=== PATIENT | male | born 1995 | race African-American/Black ===

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

== ENCOUNTER 2018-04-06 11:31 | Day surgery (SDC) | payer OTHER ==
--- NOTE | 2018-04-03 14:56 | HP ---
PREOPERATIVE HISTORY AND PHYSICAL: DATE OF ADMISSION/SURGERY: 04/06/18 [facility] DATE OF OFFICE VISIT: 03/31/18 ATTENDING SURGEON: Dr. Trent Kemp.* (DICTATED BY HOMAR CERNA) PROCEDURE: Left knee arthroscopy, partial meniscectomy, removal of hardware from tibia. CHIEF COMPLAINT: Left knee. HISTORY OF PRESENT ILLNESS: Ethan is a 22-year-old male, who presents to the clinic for left knee pain due to meniscus tear and painful hardware. He had a prior ACL and lateral meniscus repair with Dr. Kemp. He states he has had pain that comes and goes for years. He states that he feels locked in the morning. He has intermittent clicking. He states that the pain has worsened in his leg. He describes it as a lateral pain. He denies any instability or swelling. He denies numbness, tingling, fever, chills, chest pain, shortness of breath, and is doing well otherwise. He has failed conservative measures and therefore agreed to undergo a left knee arthroscopy, partial meniscectomy, and removal of hardware from tibia on 04/06/18. PAST MEDICAL HISTORY: Denies current problems. PAST SURGICAL HISTORY: Left clavicle and left knee ACL and lateral meniscus. The patient denies prior complications with anesthesia. MEDICATIONS: No active medications. ALLERGIES: No known drug allergies. FAMILY HISTORY: Denies pertinent family history. SOCIAL HISTORY: He denies smoking. He reports occasional alcohol consumption. He denies illegal drug use. REVIEW OF SYSTEMS: A 14-point review of systems was reviewed with the patient. Positive for current complaint, otherwise negative. Denies fever, chills, chest pain, shortness of breath, history of DVT or PE, history of bleeding disorder. PHYSICAL EXAMINATION GENERAL: A 22-year-old well-developed, well-nourished male, in no acute distress. Alert and oriented x3. Appropriate mood and affect. Appropriate balance and coordination of the upper extremities. VITAL SIGNS: Height 67.5, weight 179, blood pressure 118/66, respiratory rate 18, BMI 27.6. HEENT: Normocephalic, atraumatic. PERRLA. Throat clear. NECK: Supple. PULMONARY: Lungs are clear to auscultation bilaterally. No wheezing, rhonchi, or rales. CARDIO: Regular rate and rhythm. S1, S2. No murmurs, gallops, or rubs. No edema. ABDOMEN: Positive bowel sounds. Soft, nontender. NEURO: Alert and oriented x3. Cranial nerves grossly intact. MUSCULOSKELETAL: Left lower extremity: Skin is intact. Mild tenderness to palpation over the lateral joint line. Nontender over the medial joint line. He has tenderness to palpation over his tibial hardware. Range of motion is 0 to 130. Stable to varus and valgus stress. Stable Taty. Negative posterior drawer. Positive Bentley and mildly positive Roxanna. +2 DP pulse. Sensation intact to light touch distally. DIAGNOSTIC STUDIES: Multi-view x-rays of the left knee revealed presence of hardware from prior ACL surgery. No evidence of acute fracture or dislocation. ASSESSMENT AND PLAN: Ethan is a 22-year-old male, who presents to the clinic for followup of his left knee. He had a prior ACL reconstruction with lateral meniscus repair. He continues to have pain laterally and pain from his tibial hardware; therefore, he has agreed to undergo a left knee arthroscopy, partial meniscectomy, and removal of hardware from tibia on 04/06/[address] Kemp. Percocet will be used for postop pain management. He will follow up 10 to 14 days postop for followup and suture removal. HOMAR CERNA [id number]/[facility] #: [id number] [facility] HOSPITALPerry
[~2018-04-06 11:31] MED LIST: Buffered Lidocaine 1% SYRIN* 1 ML/SYRINGE INTRADERM ONE; Dexamethasone TAB* 4 MG PO ONE; Famotidine IV* 10 MG/ML 2 ML (20 mg) IV ONE; Lactated Ringers 1000 ML Bag* 1,000 ML IV SCH; Ondansetron INJ* 2 MG/ML VIAL ONE
[2018-04-06] MEDS ORDERED: Ondansetron ODT TAB* 4 MG ONE (11:46)
[2018-04-06] MEDS ORDERED: Famotidine IV* 10 MG/ML 2 ML (20 mg) ONE (11:46)
[2018-04-06] MEDS ORDERED: Dexamethasone TAB* 4 MG ONE (11:46)
[2018-04-06] MEDS ORDERED: ceFAZolin 2 GM PREMIX in ORs 2 GM/50 ML BAG IVPB ONE (11:47)
[2018-04-06] MEDS ORDERED: Lidocaine 1% MPF wEPI 200,000* 30 ML SDV ONE (13:10)
[2018-04-06] MEDS ORDERED: ROPIVACAINE 5 MG/ML 30 ML BTL (0.5%) ONE (13:11)
[2018-04-06] MEDS ORDERED: fentaNYL* 50 MCG/ML 5 ML VIAL (250 MCG VIAL) ONE (13:17)
[2018-04-06] MEDS ORDERED: Midazolam* 1 MG/ML 5 ML VIAL (5 MG) ONE (13:17)
[2018-04-06] MEDS ORDERED: Lidocaine 2% PF * 5 ML VIAL ONE (13:18)
[2018-04-06] MEDS ORDERED: Ketorolac INJ* 30 MG/ML 1 ML VIAL ONE (13:18)
[2018-04-06] MEDS ORDERED: Ondansetron INJ* 2 MG/ML VIAL ONE (13:18)
[2018-04-06] MEDS ORDERED: Propofol* 10 MG/ML 20 ML BTL ONE (13:18)
[2018-04-06] MEDS ORDERED: Glycopyrrolate IV* 0.2 MG/ML 1 ML VIAL ONE (13:40)
[2018-04-06] MEDS ORDERED: Atropine 1MG/ML INJ* 1 ML VIAL ONE (13:43)
[2018-04-06] MEDS ORDERED: Naloxone* 0.4 MG/ML 1 ML VIAL IV PRN (14:33)
[2018-04-06] MEDS ORDERED: oxyCODONE/Acetamin 5/325 MG* TAB PO PRN (14:33)
[2018-04-06] MEDS ORDERED: fentaNYL* 50 MCG/ML 2 ML VIAL (100 MCG VIAL) IV PRN (14:33)
[2018-04-06] MEDS ORDERED: DiMENhydriNATE IV* 50 MG/ML VIAL IV PUSH PRN (14:33)
[2018-04-06 15:20] VITALS: BP 121/68
--- NOTE | 2018-04-06 22:56 | OP ---
DATE OF OPERATION: 04/06/18 - [facility] DATE OF : [birth year] SURGEON: Trent Kemp MD. LOGISTICS ASSOCIATE: Anita , WILL student. ANESTHESIOLOGIST: Dr. Ospina. ANESTHESIA: General. PRE-OP DIAGNOSIS: Left possible lateral meniscus tear and previous ACL reconstruction with symptomatic hardware in the tibia. POST-OP DIAGNOSIS: Left possible lateral meniscus tear and previous ACL reconstruction with symptomatic hardware in the tibia. OPERATIVE PROCEDURE: 1. Left knee arthroscopy with a debridement of cyclops lesion. 2. Partial lateral meniscectomy. 3. Removal of hardware through a separate incision from the tibia. COMPLICATIONS: None. ESTIMATED BLOOD LOSS: Minimal. INDICATIONS: Ethan Hooper is a 22-year-old male who underwent a previous ACL reconstruction in fall 2014, which has been ACL reconstruction with BTB and an outside and lateral root meniscus repair. He has been able to successfully play football for some time. He states that the knee bothers him on occasion. He has noticed that he had some pain about the anterior aspect of the knee as well as along the washer post construct on the tibia. He had previous issues with the laterally based pain on occasion. We decided to proceed with a left knee arthroscopy with possible partial meniscectomy as well as removal of hardware. After extensive discussion of the risks and benefits including but not limited to bleeding; infection; damage to nerves, vessels, surrounding structures; wound nonhealing; persistent pain; need for further surgery; scarring; stiffness; incomplete relief of symptoms; risks of anesthesia; and risks of DVTs, elected to proceed. DESCRIPTION OF PROCEDURE: The patient was greeted in the preoperative area by the attending surgeon. Correct extremity was marked. Consent was confirmed. The patient was brought back to the operating suite, where he was placed in supine position on the operating table. He then underwent general anesthesia and LMA intubation, after which a nonsterile tourniquet was placed high on the proximal thigh. The lateral post was positioned. The leg was then prepped and draped in usual sterile fashion beginning with chlorhexidine soap, scrub, and alcohol wipe and a final prep with ChloraPrep. After appropriate surgical pause indicating site, side, procedure, and administration of antibiotics, the knee was intra-articularly injected with 0.1 % lidocaine with epi. The lateral portal was made with #11 blade sharply. There was abundant scar tissue about the anterior aspect of the knee. The abundant scar tissue was then released using a shaver. There was evidence of a cyclops lesion stemming from the ACL. This was debrided back using biters and aleisha with care not to destroy the graft. Graft was intact. The patellofemoral joint had minimal changes. The medial gutter was examined. There was no loose debris that was present. The medial compartment was examined. There was no evidence of tearing and there were grade 0 to 1 changes at the medial femoral condyle medial plateau. ACL was again found to be intact. There was abundant scar tissue. It impeded lateral viewing. Therefore, the Bovie and the shaver were used to debride this back to be able to visualize the lateral compartment. Once this was removed, the knee was placed in figure-of- four and the compartment was examined and there was a previous repair of the lateral meniscus that was a root repair. The wide edges had not healed; therefore, the shaver was used to debride this back. Once this was completed, the knee was then thoroughly lavaged and removed all fluids and the attention was directed to the open portion of the case. At this point, a previous incision was opened up using a #15 blade. Soft tissues were carefully exposed to expose the abundant sutures as well as the 4.5 mm screw. It was then removed in its entirety. The wound was then appropriately irrigated with sterile saline. The portals were closed with 3-0 nylon. The skin was closed in layers with 3-0 Monocryl and then 3-0 nylon in a running fashion. The knee was intra-articularly and locally injected with 0.2% ropivacaine. Sterile dressings were applied. Cryo/Cuff was applied. He was awoken from anesthesia and transferred to PACU in stable condition. POSTOPERATIVE PLAN: He will be weightbearing as tolerated, range of motion as tolerated, discharged on pain medications. Use crutches for the first 3 to 5 days. DVT prophylaxis was considered, but deferred due to no previous personal or family history. We will place him on antibiotics for 3 days. [id number]/[facility] #: [id number] [facility]ITALPer[facility]
== END 2018-04-06 15:14 | disposition home or self-care (01) ==
LOC: OREAST 11:31
PROVIDERS: ATTEND Orthopaedic Surgery
DX: S83.282A Other tear of lateral meniscus, current injury, left knee, initial encounter (principal); T84.84XA Pain due to internal orthopedic prosthetic devices, implants and grafts, initial encounter; Y83.1 Surgical operation with implant of artificial internal device as the cause of abnormal reaction of the patient, or of later complication, without mention of misadventure at the time of the procedure; X58.XXXA Exposure to other specified factors, initial encounter; Y92.9 Unspecified place or not applicable
CPT/HCPCS: 88300; A9270-GY; J0461; J0690; J1885; J2001; J2250; J2405; J2704; J2795; J3010; J8540